=== PATIENT | male | born 1990 | race Two or more races ===

== ENCOUNTER 2017-06-04 23:57 | Emergency (ER) | payer MEDICAID ==
--- NOTE | 2017-06-05 06:10 | Emergency Room Report ---
History of Present Illness General Chief Complaint: To Be Triaged Medical Decision Making Diagnostic Impression: Primary Impression: Patient left without being seen ER Course Patient left prior to nurse triage or M.D. evaluation Status: unchanged Disposition: LEFT W/OUT BEING SEEN Condition: Unknown Referrals: NOT CHOSEN IPA/,REFERRING (PCP) MARYSE ROSENTHAL M.D. Jun 05, 2017 06:10
== END 2017-06-05 00:33 | disposition left against medical advice (07) ==
LOC: EMR 06-05 00:33
DX: R20.0 Anesthesia of skin (principal); Z53.21 Procedure and treatment not carried out due to patient leaving prior to being seen by health care provider